=== PATIENT | female | born 1970 | race Caucasian/White ===

== ENCOUNTER 2024-05-25 19:18 | Emergency (ER) | payer OTHER ==
--- OUTSIDE RECORDS SUMMARY | 2024-05-25 19:25 | XMS REPORT | Continuity of Care Document ---
Author Name Unknown Address [address] [facility] [address] [place] [address] [facility] Address [address] [facility] [place] [address] Care Team Providers Care Head Pumper Name Role Phone RADIOLOGY Attending Clinician Unavailable Payers Payer Name Policy Type Policy Number Effective Date Expirati on Date Source [employer] O [id number] 2014 00:00:00 Allergies, Adverse Reactions, Alerts Allergy Name Allergy Type Status Severity Reaction(s) Onset Date Inactive Date Treating Clinician Comments Source [facility]EN[facility] INS Drug Class Active Hives 07-19 00:00: 00 [facility] Encounters Start Date/Time End Date/Time Encounter Type Admission Type Attending Clinicians Care Facility Care Department Encounter ID Source 2019-12-02 00:00:00 2019-12-02 00:00:00 Outpatient R RADIOLOGY [facility] [id number] [facility]
--- NOTE | 2024-05-25 20:23 | RAD REPORT ---
EXAM:Wrist Left 3 View HISTORY: PAIN COMPARISON: None IMPRESSION: Possible nondisplaced distal radial impaction fracture with lucencies at the metaphysis and likely ex tending to the articular surface. CT could confirm if clinically indicated. No other fractures identified.
[2024-05-25] MEDS ORDERED: HYDROCODONE/APAP 5/325 MG TAB ONE (21:10)
--- NOTE | 2024-05-25 21:41 | ER ---
Nurse's Notes [facility] Name: Oly Donnelly Age: 53 yrs Sex: Female : 1970 Arrival Date: 05/25/2024 Time: 19:18 Bed 6 Private MD: Diagnosis: Nondisplaced distal radius fracture, left Presentation: 05/25 19:49 Chief complaint: Patient states: was roller skating and fell on left wrist. Coronavirus iw screen: At this time, the client does not indicate any symptoms associated with coronavirus-19. Ebola Screen: No symptoms or risks identified at this time. Initial Sepsis Screen: Does the patient meet any 2 criteria? No. Patient's initial sepsis screen is negative. Does the patient have a suspected source of infection? No. Patient's initial sepsis screen is negative. Risk Assessment: Do you want to hurt yourself or someone else? Patient reports no desire to harm self or others. Onset of symptoms. 19:49 Method Of Arrival: Ambulatory iw 19:49 Acuity: CHARITO 4 iw Historical: - Allergies: 19:51 No Known Allergies; iw - Home Meds: 19:51 levothyroxine oral [Active]; iw - Immunization history:: Adult Immunizations up to date. - Infectious Disease History:: Denies. - Social history:: Smoking status: Patient denies any tobacco usage or history of. Screenin:02 [facility] ED Fall Risk Assessment (Adult) History of falling in the last 3 months, dd2 including since admission Yes- single mechanical fall (1 pt) Confusion or Disorientation No (0 pts) Intoxicated or Sedated No (0 pts) Impaired Gait No (0 pts) Mobility Assist Device Used No (0 pt) Altered Elimination No (0 pt) Score/Fall Risk Level 0 - 2 = Low Risk Oriented to surroundings, Maintained a safe environment, Educated pt \T\ family on fall prevention, incl call for assistance when getting out of bed, Assessed \T\ reinforced patient's understanding of fall precautions, Hourly rounding (assess needs \T\ fall precautionary measures) done. Abuse screen: Denies threats or abuse. Denies injuries from another. Nutritional screening: No deficits noted. Tuberculosis screening: No symptoms or risk factors identified. Assessment: 22:02 General: Appears in no apparent distress. uncomfortable, Behavior is calm, cooperative, dd2 appropriate for age. Pain: Complains of pain in left arm and left wrist Pain does not radiate. Pain currently is 6 out of 10 on a pain scale. Neuro: No deficits noted. Flores Agitation-Sedation Scale (RASS): 0 - Alert and Calm Level of Consciousness is awake, alert, obeys commands, Oriented to person, place, time, situation, Appropriate for age. Cardiovascular: No deficits noted. Patient's skin is warm and dry. Respiratory: No deficits noted. Airway is patent Respiratory effort is even, unlabored, Respiratory pattern is regular, symmetrical. GI: No deficits noted. No signs and/or symptoms were reported involving the gastrointestinal system. : No deficits noted. No signs and/or symptoms were reported regarding the genitourinary system. EENT: No deficits noted. No signs and/or symptoms were reported regarding the EENT system. Derm: No deficits noted. Musculoskeletal: Circulation, motion, and sensation intact. Range of motion: limited in left wrist Tenderness present in left wrist Reports pain in left arm and left wrist. Vital Signs: 19:49 BP 133 / 85; Pulse 100; Resp 19; Temp 97.6; Pulse Ox 100% on R/A; Weight 99.79 kg; iw Height 5 ft. 8 in. ; Pain 7/10; 22:13 BP 131 / 81; Pulse 84; Resp 16; Pulse Ox 100% on R/A; dd2 19:49 Body Mass Index 33.45 (99.79 kg, 172.72 cm) iw 19:49 Pain Scale: Adult iw Ally Coma Score: 22:02 Eye Response: spontaneous(4). Motor Response: obeys commands(6). Verbal Response: dd2 oriented(5). Total: 15. ED Course: 19:20 Patient arrived in ED. im 19:22 Danika Contreras PA-C is PHCP. sb4 19:22 Bal Dunham MD is Attending Physician. sb4 19:51 Triage completed. iw 21:41 Marvin Roberto MD is Referral Physician. sb4 21:43 ZOYA LOVE RN is Primary Nurse. dd2 22:02 Patient has correct armband on for positive identification. Bed in low position. Call dd2 light in reach. Side rails up X 1. Client placed on continuous cardiac and pulse oximetry monitoring. NIBP monitoring applied. Door closed. Noise minimized. Pillow given. Verbal reassurance given. 22:02 No provider procedures requiring assistance completed. Patient did not have IV access dd2 during this emergency room visit. Patient maintains SpO2 saturation greater than 95% on room air. Maxx wrap to left arm and left wrist Orthoglass splint: Sugar tong splint applied on left arm. Sling applied to left arm. 22:15 Provided Education on: D/C EDUCATION, SPLINT CARE AND F/U. dd2 22:16 Arm band placed on right wrist. dd2 Administered Medications: 21:18 Drug: HYDROcodone-acetaminophen PO 5 mg-325 mg 1 tabs PO once Route: PO; iw 22:16 Follow up: Response: No adverse reaction dd2 Medication: 22:02 VIS not applicable for this client. dd2 Outcome: 21:41 Discharge ordered by MD. sb4 22:15 Discharged to home ambulatory, dd2 22:15 Condition: stable 22:15 Discharge instructions given to patient, Instructed on discharge instructions, follow up and referral plans. medication usage, Demonstrated understanding of instructions, follow-up care, medications, Prescriptions given X 2, 22:16 Patient left the ED. dd2 Signatures: Joyce South, RN RN Danika Camarillo PA-C PA-C sb4 Dominique Daley DIANA, RN RN dd2
--- NOTE | 2024-05-25 21:41 | EDPHYS ---
Physician Documentation [facility] Name: Oly Donnelly Age: 53 yrs Sex: Female : 1970 Arrival Date: 05/25/2024 Time: 19:18 Bed 6 Private MD: ED Physician Bal Dunham HPI: 05/25 20:20 This 53 yrs old Female presents to ER via Ambulatory with complaints of Wrist Injury - sb4 left. 20:20 Patient states she fell onto her wrist while attempting to roll over the leg. Complains sb4 of pain and swelling to the area. Has full ROM in her fingers. No loss of sensation. Pulses also intact. Historical: - Allergies: 19:51 No Known Allergies; iw - Home Meds: 19:51 levothyroxine oral [Active]; iw - Immunization history:: Adult Immunizations up to date. - Infectious Disease History:: Denies. - Social history:: Smoking status: Patient denies any tobacco usage or history of. ROS: 20:20 Constitutional: Negative for fever, chills, and weight loss, sb4 20:20 MS/extremity: Positive for injury or acute deformity, pain, swelling, tenderness, of the left wrist, 20:20 All other systems are negative, Exam: 20:20 Hand exam: ROM: limited active range of motion due to pain, limited passive range of sb4 motion due to pain, Circulation is intact in all extremities. Pulses: are normal with no appreciated deficits, sensation intact. 20:20 Constitutional: This is a well developed, well nourished patient who is awake, alert, sb4 and in no acute distress. Head/Face: Normocephalic, atraumatic. Eyes: Extra-ocular motions intact. Periorbital areas with no swelling, redness, or edema. ENT: Mucous membranes moist. Respiratory: No increased work of breathing, no retractions or nasal flaring. Skin: Warm, dry with normal turgor. Normal color with no rashes, no lesions, and no evidence of cellulitis. Vital Signs: 19:49 BP 133 / 85; Pulse 100; Resp 19; Temp 97.6; Pulse Ox 100% on R/A; Weight 99.79 kg; iw Height 5 ft. 8 in. ; Pain 7/10; 22:13 BP 131 / 81; Pulse 84; Resp 16; Pulse Ox 100% on R/A; dd2 19:49 Body Mass Index 33.45 (99.79 kg, 172.72 cm) iw 19:49 Pain Scale: Adult iw Ally Coma Score: 22:02 Eye Response: spontaneous(4). Motor Response: obeys commands(6). Verbal Response: dd2 oriented(5). Total: 15. MDM: 19:25 Medical Screening Exam initiated sb4 21:40 Data reviewed: vital signs, nurses notes, radiologic studies, and as a result, I will sb4 discharge patient. Counseling: I had a detailed discussion with the patient and/or guardian regarding the historical points, exam findings, and any diagnostic results supporting the discharge/admit diagnosis, radiology results, the need for outpatient follow up, a orthopedic surgeon, to return to the emergency department if symptoms worsen or persist or if there are any questions or concerns that arise at home. 05/25 20:24 Order name: RAD; Complete Time: 20:24 EDMS 05/25 21:24 Order name: Sugar Tong Forearm Splint; Complete Time: 22:01 sb4 Administered Medications: 21:18 Drug: HYDROcodone-acetaminophen PO 5 mg-325 mg 1 tabs PO once Route: PO; iw 22:16 Follow up: Response: No adverse reaction dd2 Disposition: 05/26 03:36 Co-signature as Attending Physician, Bal Dunham MD I reviewed the patient's care rt provided by the Advanced Practice Provider and agree with the diagnosis and treatment plan. Disposition Summary: 05/25/24 21:41 Discharge Ordered Notes: Location: Home sb4 Problem: new sb4 Symptoms: have improved sb4 Condition: Stable sb4 Diagnosis - Nondisplaced distal radius fracture, left sb4 Followup: sb4 - With: Marvin Roberto MD - When: 1 week - Reason: Recheck today's complaints, Re-evaluation by your physician Discharge Instructions: - Discharge Summary Sheet sb4 - Wrist Fracture Treated With Immobilization, [id number] sb4 Forms: - Prescription Opioid Use sb4 - Patient Portal Instructions sb4 - Leadership Thank You Letter sb4 Prescriptions: - Ibuprofen 600 mg Oral Tablet - take 1 tablet ORAL route every 6 hours As needed take with food; 30 tablet; sb4 Refills: 0, Product Selection Permitted - Tramadol 50 mg Oral Tablet - take 1 tablet ORAL route every 8 hours as needed; 12 tablet; Refills: 0, sb4 Product Selection Permitted Signatures: Dispatcher [employer] Joyce Muller, RN RN Danika Camarillo PA-C PA-C sb4 Bal Dunham MD MD rt DAVIS, DIANA RN RN dd2 Corrections: (The following items were deleted from the chart) 05/25 19:53 19:53 Wrist Left 3 View+RAD.RAD.BRZ ordered. EDSD EDMS 21:24 21:24 Splint - Volar Wrist Splint ordered. sb4 sb4
[2024-05-25 22:20] VITALS: TEMP 97.6; O2SAT 100
[2024-05-25 22:21] VITALS: BP 131/81
== END 2024-05-25 22:16 | disposition home or self-care (01) ==
LOC: ER 19:18
PROC: 2W3DX1Z Immobilization of Left Lower Arm using Splint (ICD-10-PCS; principal; 2024-05-25)
DX: S52.502A Unspecified fracture of the lower end of left radius, initial encounter for closed fracture (principal); W18.30XA Fall on same level, unspecified, initial encounter
CPT/HCPCS: 99284

== ENCOUNTER 2024-06-12 14:33 | Emergency (ER) | payer OTHER ==
--- OUTSIDE RECORDS SUMMARY | 2024-06-12 14:36 | XMS REPORT | Continuity of Care Document ---
Author Name Unknown Address [address] [place] [address] [address] [place] [address] [facility] Address [address] [facility]. [address] [place] [address] Care Team Providers Care Leather Toggler Name Role Phone RADIOLOGY Attending Clinician Unavailable Payers Payer Name Policy Type Policy Number Effective Date Expirati on Date Source [employer] O [id number] 2014 00:00:00 Allergies, Adverse Reactions, Alerts Allergy Name Allergy Type Status Severity Reaction(s) Onset Date Inactive Date Treating Clinician Comments Source PENICILL INS Drug Class Active Hives 07-19 00:00: 00 [facility] Encounters Start Date/Time End Date/Time Encounter Type Admission Type Attending Clinicians Care Facility Care Department Encounter ID Source 2019-12-02 00:00:00 2019-12-02 00:00:00 Outpatient R RADIOLOGY [facility] [id number] [facility]
--- NOTE | 2024-06-12 15:47 | RAD REPORT ---
EXAM:Extremity Venous Uni Ltd HISTORY: leg pain TECHNIQUE: Sonographic evaluation left left lower extremity performed.Grayscale, color and spectral a nalysis performed on all vessels COMPARISON: None. FINDINGS: Left common femoral, superficial femoral, greater saphenous, popliteal and posterior tibial veins are compressible and demonstrate augmentation. Doppler demonstrates good flow. IMPRESSION: No evidence of deep venous thrombosis involving the left lower extremity.
--- NOTE | 2024-06-12 16:17 | RAD REPORT ---
Exam:Ankle Left 3 View HISTORY: left ankle pain FINDINGS: Soft tissue swelling. Bony fragment adjacent to the medial malleolus likely an avulsion fracture. Age is indeterminate and should be correlated clinically to see if there is point tenderness to suggest acuity.. No dislocation
--- NOTE | 2024-06-12 16:22 | ER ---
Nurse's Notes [facility] Name: Oly Donnelly Age: 54 yrs Sex: Female : 1970 Arrival Date: 06/12/2024 Time: 14:33 Bed IW1 Private MD: Diagnosis: Avulsion fracture left medial malleolus Presentation: 06/12 15:26 Chief complaint: Patient states: had a roller skating accident a couple weeks ago and ll1 had an injury to left ankle and now my whole leg is swollen. Coronavirus screen: At this time, the client does not indicate any symptoms associated with coronavirus-19. Initial Sepsis Screen: Does the patient meet any 2 criteria? No. Patient's initial sepsis screen is negative. Does the patient have a suspected source of infection? No. Patient's initial sepsis screen is negative. 15:26 Method Of Arrival: Ambulatory ll1 15:27 Ebola Screen: No symptoms or risks identified at this time. Risk Assessment: Do you ll1 want to hurt yourself or someone else? Patient reports no desire to harm self or others. Onset of symptoms was May 27, 2024. 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 - Infectious Disease History:: Denies. - Social history:: Smoking status: Patient denies any tobacco usage or history of. Screenin:39 [facility] ED Fall Risk Assessment (Adult) History of falling in the last 3 months, ll1 including since admission Yes- single mechanical fall (1 pt) Confusion or Disorientation No (0 pts) Intoxicated or Sedated No (0 pts) Impaired Gait No (0 pts) Mobility Assist Device Used No (0 pt) Altered Elimination No (0 pt) Score/Fall Risk Level 0 - 2 = Low Risk Maintained a safe environment, Hourly rounding (assess needs \T\ fall precautionary measures) done. Abuse screen: Denies threats or abuse. Nutritional screening: No deficits noted. Tuberculosis screening: No symptoms or risk factors identified. Assessment: 16:39 General: Appears in no apparent distress. Behavior is calm, cooperative, appropriate ll1 for age. Pain: Complains of pain in left lateral ankle Quality of pain is described as aching. Musculoskeletal: Circulation, motion, and sensation intact. Capillary refill < 3 seconds, in left toes. Reports pain in left lateral ankle. Vital Signs: 15:27 BP 135 / 81; Pulse 88; Resp 16; Temp 98.2; Pulse Ox 99% on R/A; Weight 98.88 kg; Height ll1 5 ft. 8 in. ; Pain 0/10; 15:27 Body Mass Index 33.15 (98.88 kg, 172.72 cm) ll1 15:27 Pain Scale: Adult ll1 ED Course: 14:36 Patient arrived in ED. mr 14:36 Dayana Herrera FNP-C [facility]. kb 14:36 Jon Tapia MD is Attending Physician. kb 15:27 Triage completed. ll1 15:31 Radiology exam delayed due to called 3x no answer. az 15:45 US Extremity Venous Unilateral Ltd In Process Unspecified. EDMS 16:14 Ankle Left 3 View XRAY In Process Unspecified. EDMS 16:40 Arm band placed on. ll1 16:40 Patient has correct armband on for positive identification. Provided Education on: ll1 return to ED for worsening symptoms. 16:40 No provider procedures requiring assistance completed. Patient did not have IV access ll1 during this emergency room visit. Administered Medications: No medications were administered Medication: 16:41 VIS not applicable for this client. ll1 Outcome: 16:21 Discharge ordered by . kb 16:40 Discharged to home ambulatory, ll1 16:40 Condition: stable 16:40 Discharge instructions given to patient, Instructed on discharge instructions, follow up and referral plans. Demonstrated understanding of instructions, follow-up care, 16:41 Patient left the ED. ll1 Signatures: Dispatcher [employer] EDMS Dayana Herrera FNP-C FNP-Kimi Mckeon, Reg Reg mr BrittonShonna Lynsay RN RN ll1 Corrections: (The following items were deleted from the chart) 15:28 15:27 Allergies: No Known Allergies; ll1 ll1
--- NOTE | 2024-06-12 16:22 | EDPHYS ---
Physician Documentation [facility] Name: Oly Donnelly Age: 54 yrs Sex: Female : 1970 Arrival Date: 06/12/2024 Time: 14:33 Bed IW1 Private MD: ED Physician Jon Tapia HPI: 06/12 15:10 This 54 yrs old Female presents to ER via Unassigned with complaints of Ankle Injury, kb Left. 15:10 Pt is a 54 year old female who presents for swelling to left leg that she noticed kb today. States she fell on May 25 and her ankle was sore and swollen afterwards. States she went to the clinic about the swelling today and they instructed her to come to the ER to rule out a DVT. . 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 - Infectious Disease History:: Denies. - Social history:: Smoking status: Patient denies any tobacco usage or history of. ROS: 15:11 Constitutional: As per HPI kb Exam: 15:11 Constitutional: This is a well developed, well nourished patient who is awake, alert, kb and in no acute distress. Head/Face: Normocephalic, atraumatic. ENT: Moist Mucous membranes Cardiovascular: Regular rate Respiratory: Respirations even and unlabored. No increased work of breathing. Talking in full sentences Skin: Warm, dry with normal turgor. Normal color. Neuro: Awake and alert, GCS 15, oriented to person, place, time, and situation. 15:11 Musculoskeletal/extremity: Extremities: grossly normal except: noted in the left lateral ankle: pain, swelling, tenderness, ROM: intact in all extremities, Circulation is intact in all extremities. Sensation intact. Weight bearing: able to fully bear weight, Vital Signs: 15:27 BP 135 / 81; Pulse 88; Resp 16; Temp 98.2; Pulse Ox 99% on R/A; Weight 98.88 kg; Height ll1 5 ft. 8 in. ; Pain 0/10; 15:27 Body Mass Index 33.15 (98.88 kg, 172.72 cm) ll1 15:27 Pain Scale: Adult ll1 MDM: 14:36 Medical Screening Exam initiated kb 15:13 Data reviewed: vital signs, nurses notes. kb 16:20 Differential diagnosis: fracture, sprain, dvt. Counseling: I had a detailed discussion kb with the patient and/or guardian regarding the historical points, exam findings, and any diagnostic results supporting the discharge/admit diagnosis, radiology results, the need for outpatient follow up, a orthopedic surgeon, to return to the emergency department if symptoms worsen or persist or if there are any questions or concerns that arise at home. 16:31 ED course: Discussed splint, walking boot and nadia wrap with pt. Pt states she has been kb walking on it since it happened so she doesn't think any of that is necessary. Pt has a follow up with Pardeep on June 24 for forearm fracture so she will tell him about her ankle as well. . 06/12 15:14 Order name: US Extremity Venous Unilateral Ltd; Complete Time: 16:11 kb 06/12 15:14 Order name: Ankle Left 3 View XRAY; Complete Time: 16:19 kb Administered Medications: No medications were administered Disposition Summary: 06/12/24 16:21 Discharge Ordered Notes: Location: Home kb Condition: Stable kb Diagnosis - Avulsion fracture left medial malleolus kb Followup: kb - With: Emergency Department - When: As needed - Reason: Worsening of condition Followup: kb - With: Private Physician - When: 2 - 3 days - Reason: Recheck today's complaints, Continuance of care, Re-evaluation by your physician Discharge Instructions: - Discharge Summary Sheet kb - Ankle Fracture, [id number] kb Forms: - Medication Reconciliation Form kb - Antibiotic Education kb - Prescription Opioid Use kb - Patient Portal Instructions kb - Leadership Thank You Letter kb Signatures: Dispatcher [employer] Dayana Sheriff FNP-C FNP-Yolande Calvillo RN RN ll1 Corrections: (The following items were deleted from the chart) 15:28 15:27 Allergies: No Known Allergies; ll1 ll1
[2024-06-12 18:26] VITALS: BP 135/81; TEMP 98.2; O2SAT 99
== END 2024-06-12 16:41 | disposition home or self-care (01) ==
LOC: ER 14:33
DX: S82.52XA Displaced fracture of medial malleolus of left tibia, initial encounter for closed fracture (principal)
CPT/HCPCS: 93971